=== PATIENT | female | born 1965 | race Caucasian/White ===

== ENCOUNTER 2024-02-24 06:52 | Emergency (ER) | payer BC ==
--- OUTSIDE RECORDS SUMMARY | 2024-02-24 06:56 | XMS REPORT | Continuity of Care Document ---
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 Ordering Clinician Indication Dosage Frequency Signature (SIG) Comments Components Source TAKE 1 TABLET TWICE DAILY UNTIL FINISHED. 02-06 00:00: 00 09-01 00:00 :00 No 500 Jose Francisco Bean TAKE 1 NOW, REPEAT IN 3 DAYS 02-04 00:00: 00 09-01 00:00 :00 No 150 Jose Francisco Bean 1 APPLICATORF UL (APPROXIMAT CANDICE 5 G) ONCE DAILY AT BEDTIME FOR SEVEN DAYS INTRAVAGINA LLY 02-04 00:00: 00 09-01 00:00 :00 No 1 Jose Francisco Bean TAKE 1 TABLET DAILY. 02-04 00:00: 00 09-01 00:00 :00 No 10 Jose Francisco Bean NITROFUR MON 100MG 09-10 00:00: 00 Yes Jose Francisco Bean TAKE 1 CAPSULE TWICE DAILY. 09-10 00:00: 00 09-01 00:00 :00 No 100 Jose Francisco Bean &lt - 00:00: 00 Yes 50 Jose Francisco Bean PREDNISONE 20MG TABLETS - 00:00: 00 09-01 00:00 :00 No Jose Francisco Bean hydroxyzine HCl 50 mg tablet 2020-06 2-23 00:00: 00 Yes 1mg Jose Francisco Bean lisinopril 5 mg tablet 1-14 00:00: 00 Yes 1mg Jose Francisco Gutierrez Bean lisinopril 5 mg tablet 2019-06 00:00: 00 Yes 1mg Jose Francisco Gutierrez Bean Immunizations Ordered Immunization Name Filled Immunization Name Date Status Comments Source Influenza, seasonal, inj Influenza, seasonal, inj 2020-05-19 00:00:00 Completed Jose Francisco Bean Vital Signs Vital Name Observation Time Observation Value Comments S ource Heart Rate 2024-02-06 10:55:00 100.00 /min Step hen F Vikas Respiratory Rate 2024-02-06 10:55:00 19.00 /min Jose Francisco F Vikas BP Systolic 2024-02-06 10:55:00 144 mm[Hg] Step hen F Vikas BP Diastolic 2024-02-06 10:55:00 98 mm[Hg] Jamarcus phen F Vikas Weight Measured 2024-02-06 10:55:00 177.00 pounds Jose Francisco F Vikas Height Measured 2024-02-06 10:55:00 63.00 inches Jose Francisco F Vikas Body Temperature 2024-02-06 10:55:00 97.50 degrees Jose Francisco F Vikas BP Systolic 2023-02-04 13:39:00 155 mm[Hg] Step hen F Vikas BP Diastolic 2023-02-04 13:39:00 97 mm[Hg] Jamarcus phen F Vikas Weight Measured 2023-02-04 13:39:00 191.00 pounds Jose Francisco F Vikas Height Measured 2023-02-04 13:39:00 63.00 inches Jose Francisco F Vikas Body Temperature 2023-02-04 13:39:00 98.50 degrees Jose Francisco F Vikas Heart Rate 2023-02-04 13:39:00 108.00 /min Step hen F Vikas Respiratory Rate 2023-02-04 13:39:00 Jose Francisco F Vikas BP Systolic 2022-09-10 13:53:00 144 mm[Hg] Step hen F Vikas BP Diastolic 2022-09-10 13:53:00 97 mm[Hg] Jamarcus phen F Vikas Weight Measured 2022-09-10 13:53:00 192.80 pounds Jose Francisco F Vikas Height Measured 2022-09-10 13:53:00 63.00 inches Jose Francisco F Vikas Body Temperature 2022-09-10 13:53:00 97.90 degrees Jose Francisco F Vikas Heart Rate 2022-09-10 13:53:00 95.00 /min Adry en F Vikas Respiratory Rate 2022-09-10 13:53:00 Jose Francisco F Vikas BP Systolic 2021-12-18 11:50:00 135 mm[Hg] Step hen F Vikas BP Diastolic 2021-12-18 11:50:00 88 mm[Hg] Jamarcus phen F Vikas Weight Measured 2021-12-18 11:50:00 193.00 pounds Jose Francisco F Vikas Height Measured 2021-12-18 11:50:00 63.00 inches Jose Francisco F Vikas Body Temperature 2021-12-18 11:50:00 98.70 degrees Jose Francisco F Vikas Heart Rate 2021-12-18 11:50:00 95.00 /min Adry en F Vikas Respiratory Rate 2021-12-18 11:50:00 16.00 /min Jose Francisco F Vikas BP Systolic 2020-05-19 14:02:00 152 mm[Hg] Step hen F Vikas BP Diastolic 2020-05-19 14:02:00 98 mm[Hg] Jamarcus phen F Vikas Weight Measured 2020-05-19 14:02:00 196.60 pounds Jose Francisco F Vikas Height Measured 2020-05-19 14:02:00 63.00 inches Jose Francisco F Vikas Body Temperature 2020-05-19 14:02:00 98.30 degrees Jose Francisco F Vikas Heart Rate 2020-05-19 14:02:00 104.00 /min Step hen F Vikas Respiratory Rate 2020-05-19 14:02:00 17.00 /min Jose Francisco F Vikas Encounters Start Date/Time End Date/Time Encounter Type Admission Type Attending [facility] Care Department Encounter ID Source 2024-02-06 10:32:04 2024-02-06 10:32:04 Outpatient [facility] [id number] Jose Francisco Bean 2024-02-06 00:00:00 2024-02-06 00:00:00 Outpatient Visit [facility] [id number] Jose Francisco Bean 2023-02-04 13:39:43 2023-02-04 13:39:43 Outpatient [facility] [id number] Jose Francisco Bean 2022-09-10 13:57:46 2022-09-10 13:57:46 Outpatient [facility] [id number] Jose Francisco Bean Results Test Description Test Time Test Comments Results Result Co mments Source CULTURE, URINE 2023-02-06 08:58:24 SPECIMEN NUMBER: [id number] CULTURE, URINE SPECIMEN NUMBER: [id number] SOURCE: URINE REPORT STATUS: FINAL FINAL REPORT: 02/06/2023 50-100,000 CFU/ML UROGENITAL ROMARIO PRESENT NO COMMON PATHOGENS Jose Francisco BeanVAGINAL PATHOGENS DNA [id number] 14:19:17* Test Item Value Reference Range Interpretation Comme nts MINNA SPECIES (test code = 39598) NEGATIVE NEGATIVE G. VAGINALIS (test code = 89684) POSITIVE NEGATIVE A T. VAGINALIS (test code = 25271) NEGATIVE NEGATIVE Note: The [employer] irg4interactive VPIII Microbial Identification Testis a DNA probe test intended for use in the detectionand identification of Minna species, Gardnerellavaginalis and Trichomonas vaginalis nucleic acid. UNLESS OTHERWISE INDICATED, ALL TESTING PERFORMED AT [facility] [address] [place] [address] VACUUM PLASTIC FORMING MACHINE OPERATOR: STEPHANIE CARRERO M.D. CLIA NUMBER [id number] [facility] [place]. [id number] VAGINAL PATHOGENS DNA [id number] 00:00:00* Test Item Value Reference Range Interpretation Comme nts MINNA SPECIES (test code = ) NEGATIVE G. VAGINALIS (test code = 46861) POSITIVE T. VAGINALIS (test code = 02078) NEGATIVE Jose Francisco BeanCULTURE, [id number] 12:16:29SPECIMEN NUMBER: [id number] CULTURE, URINE SPECIMEN NUMBER: [id number] SPECIMEN COMMENT: URINE SOURCE: URINE REPORT STATUS: FINAL ISOLATE NUMBER 1: IDENTIFICATION: 09/13/2022 STAPHYLOCOCCUS SAPROPHYTICUS ADDITIONAL OBSERVATIONS: ROUTINE SUSCEPTIBILITY TESTING OF S.SAPROPHYTICUS IS NOT ADVISED,BECAUSEINFECTIONS RESPOND TO CONCENTRATIONS ACHIEVED IN URINE OF ANTIMICROBIAL AGENTS COMMONLY USED TO TREAT ACUTE, UNCOMPLICATED URINARY TRACT INFECTIONS (EG, NITROFURANTOIN, TRIMETHOPRIM+/-SULFAMETHOXAZOLE,OR A FLUORQUINOLONE). PRELIMINARY URINE CULTURE: 09/12/2022 >100,000 CFU/ML GRAM POSITIVE ROMARIO [facility] has important pathology staff changes effective 07/31/2022. New pathology staff will provide uninterrupted, excellent patient care and clinical consultation. See URL: [email or web address]. UNLESS OTHERWISE INDICATED, ALL TESTING PERFORMED AT [facility] [address] [place] [address] V[employer]UUM P[employer] FORMING MACHINE OPERATOR: STEPHANIE CARRERO M.D. CLIA NUMBER [id number]. [id number], [id number] 00:00:00* Test Item Value Reference Range Interpretation Comme nts CULTURE, URINE (test code = 82136) SPECIMEN NUMBER: [id number] Jose Francisco BeanCBC W/AUTO [id number] 00:00:00* Test Item Value Reference Range Interpretation Comme nts WBC (test code = 1001) 11.5 K/UL RBC (test code = 1002) 4.93 M/UL HEMOGLOBIN (test code = 1003) 17.3 G/DL HEMATOCRIT (test code = 1004) 48.7 % MCV (test code = 1005) 98.8 fL MCH (test code = 1006) 35.1 PG MCHC (test code = 1007) 35.5 G/DL RDW (test code = 1038) 12.9 % NEUTROPHILS (test code = 1008) 59.7 % LYMPHOCYTES (test code = 1010) 29.8 % MONOCYTES (test code = 1011) 6.7 % EOSINOPHILS (test code = 1012) 2.6 % BASOPHILS (test code = 1013) 1.2 % PLATELET COUNT (test code = 1015) 191 K/UL Jose Francisco BeanCOMPREHENSIVE METABOLIC [id number] 00:00:00* Test Item Value Reference Range Interpretation Comme nts GLUCOSE (test code = 2217) 124 MG/DL BUN (test code = 2208) 9 MG/DL CREATININE (test code = 2214) 0.81 MG/DL eGFR AMER. (test cod e = 46906) 97 ML/MIN/1.73 eGFR NON- AMER. (test code = 72772) 84 ML/MIN/1.73 CALC BUN/CREAT (test code = 2235) 11 RATIO SODIUM (test code = 2231) 136 MEQ/L POTASSIUM (test code = 2228) 4.5 MEQ/L CHLORIDE (test code = 2215) 100 MEQ/L CARBON DIOXIDE (test code = 2206) 24 MEQ/L CALCIUM (test code = 2209) 10.1 MG/DL PROTEIN, TOTAL (test code = 2229) 7.6 G/DL ALBUMIN (test code = 2201) 4.7 G/DL CALC GLOBULIN (test code = 2240) 2.9 G/DL CALC A/G RATIO (test code = 2234) 1.6 RATIO BILIRUBIN, TOTAL (test code = 2207) 0.4 MG/DL ALKALINE PHOSPHATASE (test code = 2204) 69 U/L AST (test code = 2218) 42 U/L ALT (test code = 2219) 65 U/L Jose Francisco BeanLIPID [id number] 00:00:00* Test Item Value Reference Range Interpretation Comme nts CHOLESTEROL (test code = 2210) 208 MG/DL TRIGLYCERIDES (test code = 2232) 343 MG/DL HDL CHOLESTEROL (test code = 2220) 44 MG/DL CALC LDL CHOL (test code = 2237) 115 MG/DL RISK RATIO LDL/HDL (test cod e = 2238) 2.61 RATIO Jose Francisco [id number] 00:00:00* Test Item Value Reference Range Interpretation Comme nts TSH, THIRD GENERATION (test code = 2821) 1.680 UIU/ML Jose Francisco Baen Notes Date/Time Note Provider Source Jose Francisco [facility]
[2024-02-24] MEDS ORDERED: MECLIZINE HCL 12.5 MG TAB ONE (07:29)
[2024-02-24 07:36] LABS: Absolute Eosinophils 0.3 K/uL (0-0.5); Absolute Lymphocytes (CBC) 2.7 K/uL (0.7-4.9); Absolute Monocytes 0.7 K/uL (0.1-1.3); Absolute Neutrophil 6.4 K/uL (1.8-8.0); Basophils % 0.2 % (0-1.3); Eosinophils % 2.6 % (0-4.4); Hematocrit 50.4 % (36.0-45.0); Hemoglobin 17.1 g/dL (12.0-15.0); Lymphocytes % 26.8 % (15.3-44.8); MCH 35.1 pg (27.0-35.0); MCHC 33.9 g/dL (32.0-36.0); MCV 103.5 fL (80-100); MPV 9.4 fL (7.6-11.3); Monocytes % 6.5 % (3.3-12.3); Neutrophils % 63.9 % (41.7-73.7); Platelets 165 thou/uL (152-406); RBC Red Blood Cell Count 4.87 M/uL (3.86-4.86); Red Cell Distribution Width 13.1 % (12.1-15.2)
[2024-02-24 07:50] LABS: Anion Gap 6.6 mEq/L (5.0-15.0); Potassium 3.6 mEq/L (3.5-5.1); Troponin High Sensitivity 4.6 pg/mL (<58.9)
--- NOTE | 2024-02-24 07:55 | RAD REPORT ---
EXAMINATION: ONE VIEW CHEST XR CLINICAL INDICATION: Female, 58 years old. dizzines. [facility] MAIN dizzines Bed Name: 14 TECHNIQUE: Frontal chest projection is submitted. Examination is limited by patient positioning and t echnique. COMPARISON: No prior exam. FINDINGS: The lungs are well inflated and clear. The heart is upper limit of normal in size. No displaced fract ures identified. IMPRESSION: No acute intrathoracic abnormalities.
[2024-02-24] MEDS ORDERED: NA CHLORIDE 0.9% 1,000 ML ONE (08:07)
--- NOTE | 2024-02-24 09:11 | ER ---
Nurse's Notes [facility] Name: Savana Pearson Age: 58 yrs Sex: Female : 1965 Arrival Date: 02/24/2024 Time: 06:52 Bed 14 Private MD: Diagnosis: Dizziness;Hyperglycemia, unspecified;Elevated Hemoglobin Presentation: 02/23 07:03 Chief complaint: Patient states: bilateral arm tingling x 1 week. Pt states, "I think I ss might be diabetic.". Coronavirus screen: Client denies travel out of the [place] in the last 14 days. Ebola Screen: Patient denies exposure to infectious person. Patient denies travel to an Ebola-affected area in the 21 days before illness onset. Initial Sepsis Screen: Does the patient meet any 2 criteria? No. Patient's initial sepsis screen is negative. Does the patient have a suspected source of infection? No. Patient's initial sepsis screen is negative. Risk Assessment: Do you want to hurt yourself or someone else? Patient reports no desire to harm self or others. Onset of symptoms is unknown. 07:03 Method Of Arrival: Ambulatory ss 07:03 Acuity: ROSMERY 3 ss Historical: - Allergies: 07:07 No Known Allergies; ss - Home Meds: 07:07 None [Active]; ss - PMHx: 07:07 Hypertensive disorder; ss - PSHx: 07:07 L arm; ss - Immunization history:: Client reports having NOT received the Covid vaccine. - Infectious Disease History:: Denies. - Social history:: Smoking status: Patient reports the use of cigarette tobacco products, smokes one-half pack cigarettes per day. Screenin:09 [facility] ED Fall Risk Assessment (Adult) History of falling in the last 3 months, mb9 including since admission No falls in past 3 months (0 pts) Confusion or Disorientation No (0 pts) Intoxicated or Sedated No (0 pts) Impaired Gait No (0 pts) Mobility Assist Device Used No (0 pt) Altered Elimination No (0 pt) Score/Fall Risk Level 0 - 2 = Low Risk Oriented to surroundings, Maintained a safe environment, Educated pt \\T\\ family on fall prevention, incl call for assistance when getting out of bed. Abuse screen: Denies threats or abuse. Nutritional screening: No deficits noted. Tuberculosis screening: No symptoms or risk factors identified. Assessment: 07:30 General: Appears in no apparent distress. Behavior is calm, cooperative. Pain: Denies mb9 pain. Neuro: Cali Agitation-Sedation Scale (RASS): 0 - Alert and Calm Level of Consciousness is awake, alert, obeys commands, Oriented to person, place, time, situation, Appropriate for age Reports dizziness, numbness in right arm and left arm since 1 week ago. Cardiovascular: Heart tones S1 S2 present Patient's skin is warm and dry. Respiratory: Airway is patent Respiratory effort is even, unlabored, Respiratory pattern is regular, symmetrical. GI: Abdomen is round non-distended, Bowel sounds present X 4 quads. Abd is soft and non tender X 4 quads. Patient currently denies nausea. : No signs and/or symptoms were reported regarding the genitourinary system. EENT: No signs and/or symptoms were reported regarding the EENT system. Derm: Skin is pink, warm \\T\\ dry. Musculoskeletal: Range of motion: intact in all extremities. 08:03 Reassessment: Patient and/or family updated on plan of care and expected duration. Pain mb9 level reassessed. Patient is alert, oriented x 3, equal unlabored respirations, skin warm/dry/pink. Patient states feeling better. Patient states symptoms have improved. 09:02 Reassessment: No changes from previously documented assessment. Patient and/or family mb9 updated on plan of care and expected duration. Pain level reassessed. Patient is alert, oriented x 3, equal unlabored respirations, skin warm/dry/pink. Vital Signs: 07:03 BP 141 / 102; Pulse 103; Resp 16; Pulse Ox 100% on R/A; Weight 77.11 kg; Pain 0/10; ss 07:55 BP 130 / 85; Pulse 76; Resp 18; Pulse Ox 98% on R/A; mb9 09:34 BP 153 / 98; Pulse 87; Resp 18; Pulse Ox 100% on R/A; mb9 07:03 Pain Scale: Adult ss ED Course: 06:58 Patient arrived in ED. gm2 07:05 Emile Lara DO is Attending Physician. ms3 07:07 Triage completed. ss 07:09 Ny Cox RN is Primary Nurse. mb9 07:09 Arm band placed on. mb9 07:10 Placed in gown. Bed in low position. Call light in reach. Side rails up X 1. Provided mb9 Education on: press call light if needing anything. Client placed on continuous cardiac and pulse oximetry monitoring. NIBP monitoring applied. Door closed. Noise minimized. Warm blanket given. Pillow given. 07:30 Initial lab(s) drawn, by me, sent to lab. EKG done, by ED staff, reviewed by Emile Lara DO. Inserted saline lock: 20 gauge in right antecubital area, using aseptic technique. Blood collected. Flushed with 10 mL NS. 07:32 No provider procedures requiring assistance completed. mb9 07:42 XRAY Chest (1 view) In Process Unspecified. EDMS 09:10 Franklyn Parker DO is Referral Physician. ms3 09:34 IV discontinued, intact, bleeding controlled, No redness/swelling at site. Pressure mb9 dressing applied. Administered Medications: 07:30 Drug: Meclizine PO 25 mg PO once Route: PO; mb9 08:03 Follow up: Response: No adverse reaction mb9 08:12 Drug: NS 0.9% IV 1000 ml IV at 1 bolus Per protocol; 1000 mL bolus Route: IV; Rate: 1 mb9 bolus; Site: right antecubital; 09:16 Follow up: Response: No adverse reaction; IV Status: Completed infusion mb9 Medication: 07:32 VIS not applicable for this client. mb9 Outcome: 09:10 Discharge ordered by . ms3 09:35 Discharged to home ambulatory, mb9 09:35 Condition: stable 09:35 Discharge instructions given to patient, Instructed on discharge instructions, follow up and referral plans. Demonstrated understanding of instructions, follow-up care, 09:35 Patient left the ED. mb9 Signatures: Dispatcher [employer] EDMS Shanel Pires RN RN ss Sims, Marcus, DO DO ms3 Ny Cox RN RN Treasure Whaley gm2
--- NOTE | 2024-02-24 09:11 | EDPHYS ---
Physician Documentation [facility] Name: Savana Pearson Age: 58 yrs Sex: Female : 1965 Arrival Date: 02/24/2024 Time: 06:52 Bed 14 Private MD: ED Physician Emile Lara HPI: 02/23 07:14 This 58 yrs old Female presents to ER via Ambulatory with complaints of Arm Pain, ms3 Dizziness. 07:14 58-year-old female with past medical history of hypertension presents to the emergency ms3 department for dizziness. Patient states she had a viral illness last week. Patient denies pain, nausea, vomiting, shortness of breath. Patient states bending over makes her symptoms worse. Patient states her symptoms of dizziness began yesterday. Historical: - Allergies: 07:07 No Known Allergies; ss - Home Meds: 07:07 None [Active]; ss - PMHx: 07:07 Hypertensive disorder; ss - PSHx: 07:07 L arm; ss - Immunization history:: Client reports having NOT received the Covid vaccine. - Infectious Disease History:: Denies. - Social history:: Smoking status: Patient reports the use of cigarette tobacco products, smokes one-half pack cigarettes per day. ROS: 07:14 Constitutional: Negative for fever, and chills. Cardiovascular: Negative for chest ms3 pain, and palpitations. Respiratory: Negative for shortness of breath, cough, wheezing, and pleuritic chest pain, Abdomen/GI: Negative for abdominal pain, nausea, vomiting, diarrhea, and constipation, MS/Extremity: Negative for injury and deformity, Skin: Negative for injury, rash, and discoloration, 07:14 Neuro: Positive for dizziness, Exam: 07:14 Constitutional: This is a well developed, well nourished patient who is awake, alert, ms3 and in no acute distress. Chest/axilla: Normal chest wall appearance and motion. Nontender with no deformity. Cardiovascular: Regular rate and rhythm with a normal S1 and S2. No gallops, murmurs, or rubs. Normal PMI, no JVD. No pulse deficits. Respiratory: Lungs have equal breath sounds bilaterally, clear to auscultation and percussion. No rales, rhonchi or wheezes noted. No increased work of breathing, no retractions or nasal flaring. Abdomen/GI: Soft, non-tender, with normal bowel sounds. No distension or tympany. No guarding or rebound. No evidence of tenderness throughout. Skin: Warm, dry with normal turgor. Normal color with no rashes, no lesions, and no evidence of cellulitis. MS/ Extremity: Pulses equal, no cyanosis. Neurovascular intact. Full, normal range of motion. Neuro: Awake and alert, GCS 15, oriented to person, place, time, and situation. Cranial nerves II-XII grossly intact. Motor strength 5/5 in all extremities. Sensory grossly intact. Cerebellar exam normal. Normal gait. 09:11 ECG was reviewed by the Attending Physician. ms3 Vital Signs: 07:03 BP 141 / 102; Pulse 103; Resp 16; Pulse Ox 100% on R/A; Weight 77.11 kg; Pain 0/10; ss 07:55 BP 130 / 85; Pulse 76; Resp 18; Pulse Ox 98% on R/A; mb9 09:34 BP 153 / 98; Pulse 87; Resp 18; Pulse Ox 100% on R/A; mb9 07:03 Pain Scale: Adult ss MDM: 07:12 Patient medically screened. ms3 07:14 Differential diagnosis: Dehydration vs arrhythmia vs BPV. ms3 09:11 Data reviewed: vital signs, nurses notes, lab test result(s), EKG, and as a result, I ms3 will discharge patient. I considered the following discharge prescriptions or medication management in the emergency department Medications were administered in the Emergency Department. See MAR. Independent interpretation of the following test(s) in the Emergency Department EKG: See my EKG interpretation above. Independent interpretation of the following test(s) in the Emergency Department Rhythm Strip Interpretation Rate: 70BPM Rhythm: regular. Care significantly affected by the following chronic conditions: Hypertension. Counseling: I had a detailed discussion with the patient and/or guardian regarding the historical points, exam findings, and any diagnostic results supporting the discharge/admit diagnosis, lab results, the need for outpatient follow up, to return to the emergency department if symptoms worsen or persist or if there are any questions or concerns that arise at home. Special discussion: I discussed with the patient/guardian in detail that at this point there is no indication for admission to the hospital. It is understood, however, that if the symptoms persist or worsen the patient needs to return immediately for re-evaluation. ED course: Discussed labs, EKG, chest x-ray with patient. Patient to follow-up with primary care physician in 2 to 3 days. Patient understands and agrees with plan. All questions were answered. Return precautions discussed include worsening symptoms, or any other concerns. On reevaluation patient's symptoms improved, finger-nose intact, patient ambulatory in the emergency department.. 02/23 07:13 Order name: Basic Metabolic Panel; Complete Time: 07:57 ms3 02/23 07:13 Order name: CBC with Diff; Complete Time: 07:57 ms3 02/23 07:13 Order name: Troponin HS; Complete Time: 07:57 ms3 02/23 07:13 Order name: XRAY Chest (1 view); Complete Time: 07:57 ms3 02/23 07:13 Order name: Cardiac monitoring; Complete Time: 07:13 ms3 02/23 07:13 Order name: EKG - Nurse/Tech; Complete Time: 07:30 ms3 02/23 07:13 Order name: IV Saline Lock; Complete Time: 07:30 ms3 02/23 07:13 Order name: Labs collected and sent; Complete Time: 07:30 ms3 02/23 07:13 Order name: O2 Per Protocol; Complete Time: 07:13 ms3 02/23 07:13 Order name: O2 Sat Monitoring; Complete Time: 07:13 ms3 EC:11 Rate is 80 beats/min. Rhythm is regular. QRS [place] is Normal. TN interval is normal. QRS ms3 interval is normal. Clinical impression: Normal ECG. Interpreted by me. Reviewed by me. Administered Medications: 07:30 Drug: Meclizine PO 25 mg PO once Route: PO; mb9 08:03 Follow up: Response: No adverse reaction mb9 08:12 Drug: NS 0.9% IV 1000 ml IV at 1 bolus Per protocol; 1000 mL bolus Route: IV; Rate: 1 mb9 bolus; Site: right antecubital; 09:16 Follow up: Response: No adverse reaction; IV Status: Completed infusion mb9 Disposition Summary: 02/24/24 09:10 Discharge Ordered Notes: Location: Home ms3 Condition: Stable ms3 Diagnosis - Dizziness ms3 - Hyperglycemia, unspecified ms3 - Elevated Hemoglobin ms3 Followup: ms3 - With: Franklyn Parker, DO - When: 2 - 3 days - Reason: Recheck today's complaints Discharge Instructions: - Discharge Summary Sheet ms3 - Hyperglycemia ms3 - Dizziness, Pipl-oj-Ekuj ms3 Forms: - Medication Reconciliation Form ms3 - Antibiotic Education ms3 - Prescription Opioid Use ms3 - Patient Portal Instructions ms3 - Leadership Thank You Letter ms3 - Work release form mb9 Signatures: Dispatcher [employer] EDMS Shanel Pires, RN RN Emile Gutierrez DO DO ms3 Ny Cox RN RN mb9 Corrections: (The following items were deleted from the chart) 07:14 07:13 BASIC METABOLIC PANEL+C.LAB.BRZ ordered. EDMS EDMS 07:14 07:13 CBC+H.LAB.BRZ ordered. EDMS EDMS 07:14 07:13 Troponin High Sensitivity+C.LAB.BRZ ordered. EDMS EDMS 07:14 07:14 Chest Single View+RAD.RAD.BRZ ordered. EDMS EDMS
[2024-02-24 09:57] VITALS: BP 153/98; O2SAT 100
--- NOTE | 2024-02-25 13:49 | EKG ---
Test Date: 2024-02-24 Test Time: 07:21:09 Continuity Person: MB MEASUREMENT RESULTS: Intervals: Rate: 80 IL: 144 QRSD: 100 QT: 376 QTc: 433 [place]: P: 41 IL: 144 QRS: 52 T: 59 INTERPRETIVE STATEMENTS: Normal sinus rhythm with sinus arrhythmia Normal ECG No previous ECG available for comparison Electronically Signed On 02-25-24 13:09:50 CDT by Baljit Gu
== END 2024-02-24 09:35 | disposition home or self-care (01) ==
LOC: ER 06:52
DX: R42 Dizziness and giddiness (principal); R73.9 Hyperglycemia, unspecified; I10 Essential (primary) hypertension; D58.2 Other hemoglobinopathies; F17.210 Nicotine dependence, cigarettes, uncomplicated
CPT/HCPCS: 85025; 80048; 36415; 84484; 71045; J8597; J7030; 93005; 96360; 99284